=== PATIENT | female | born 1935 | race Caucasian/White ===

== ENCOUNTER 2017-11-16 11:55 | Observation (INO) | payer OTHER ==
--- NOTE | 2017-11-16 13:10 | PDOC ---
History of Present Illness - General History Source: Patient Exam Limitations: No Limitations - History of Present Illness Initial Comments: 11/16/17 15:43 The patient is a 82 year old female, with a significant PMH of breast cancer, HTN, depression and anxiety who presents to the emergency department from the [facility], complaining of right thigh pain which began approximately 3 days ago. Patient noticed erythema and constant pain to the right thigh 3 days ago. Patient mentioned she is part of the independent facility of the [facility], with no aid assistance and sits most of the day. The patient denies chest pain, shortness of breath, headache and dizziness. Denies fever, chills, nausea, vomit, diarrhea and constipation.Denies dysuria, frequency, urgency and hematuria. Allergies:Naproxen sodium Past surgical history: Appendectomy, Cholecystectomy, and rotator cuff surgery Social history: None reported PCP: Reny Luna <Yo Sahu - Last Filed: 11/16/17 16:23> <Melecio Zaidi - Last Filed: 11/16/17 16:55> - General Chief Complaint: Redness To Affected Area Stated Complaint: RT THIGH PAIN Time Seen by Provider: 11/16/17 12:44 Past History <Yo Sahu - Last Filed: 11/16/17 16:23> - Past Medical History Cancer: Yes (BREAST) COPD: No HTN: Yes Psychiatric Problems: Yes (DEPRESSION AND ANXIETY) - Surgical History Appendectomy: Yes Cholecystectomy: Yes Orthopedic Surgery: Yes (rotator cuff sx) - Suicide/Smoking/Psychosocial Hx Smoking History: Never smoked Number of Cigarettes Smoked Daily: 0 Cigars Per Day: 0 Hx Alcohol Use: No Drug/Substance Use Hx: No Substance Use Type: None Hx Substance Use Treatment: No <Melecio Zaidi - Last Filed: 11/16/17 16:55> - Past Medical History Allergies/Adverse Reactions: Allergies Allergy/AdvReac Type Severity Reaction Status Date / Time naproxen sodium [From Aleve] Allergy Verified 04/05/14 15:52 ASA Allergy Uncoded 11/16/17 12:23 Home Medications: Ambulatory Orders Venlafaxine HCl ER [Effexor Xr -] 75 mg PO DAILY 04/05/14 Acetaminophen [Mapap] 1,000 mg PO PRN PRN 11/16/17 Bupropion HCl [Wellbutrin Xl -] 150 mg PO DAILY 11/16/17 Ergocalciferol (Vitamin D2) [Vitamin D2] 50,000 unit PO WEEKLY 11/16/17 Review of Systems - Review of Systems Able to Perform ROS?: Yes Comments:: 11/16/17 15:43 CONSTITUTIONAL: No fever, no chills, no fatigue EYES: No visual changes ENT: No ear pain, no sore throat CARDIOVASCULAR: No chest pain, no palpitations RESPIRATORY: No cough, no SOB GI: No abdominal pain, no nausea, no vomiting, no constipation, no diarrhea GENITOURINARY: No dysuria, no frequency, no hematuria MUSKULOSKELETAL: No back pain, no joint pain, no myalgias SKIN: +Erythematous right thigh NEURO: No headache <Yo Sahu - Last Filed: 11/16/17 16:23> *Physical Exam - Vital Signs Last Vital Signs Temp Pulse Resp BP Pulse Ox 97.8 F 68 17 117/48 95 11/16/17 12:18 11/16/17 12:18 11/16/17 12:18 11/16/17 12:18 11/16/17 12:18 <Yo Sahu - Last Filed: 11/16/17 16:23> - Vital Signs Last Vital Signs Temp Pulse Resp BP Pulse Ox 97.8 F 68 17 117/48 95 11/16/17 12:18 11/16/17 12:18 11/16/17 12:18 11/16/17 12:18 11/16/17 12:18 - Physical Exam Comments: 11/16/17 16:04 EXAMINATION CONSTITUTIONAL:alert; well nourished; in no apparent distress HEAD: Normocephalic; atraumatic EYES: PERRL; EOM intact ENMT: External appears normal; normal oropharynx NECK: Supple; non-tender; no cervical lymphadenopathy CARD: Normal S1, S2; 3/6 sys murmurs, no rubs, or gallops RESP: Normal chest excursion with respiration; breath sounds clear and equal bilaterally; no wheezes, rhonchi, or rales ABD: Soft, non-distended; non-tender; no palpable organomegaly, no palpable hernias EXT: RLE: + torturous, tender, palpable superficial vein to inner aspect of the thigh wtih aprox 12cm area of well demarcated erythema distally c/w cellulitis; distal pulses intact SKIN: Warm, dry, no rash NEURO: No focal neurological deficiencies. <Melecio Zaidi - Last Filed: 11/16/17 16:55> ED Treatment Course - LABORATORY CBC & Chemistry Diagram: 11/16/17 11:30 11/16/17 11:30 - ADDITIONAL ORDERS Additional order review: Laboratory Results 11/16/17 11:30 Sodium 142 Potassium 4.6 Chloride 104 Carbon Dioxide 34 H Anion Gap 4 L BUN 21 H Creatinine 1.0 Creat Clearance w eGFR 53.08 Random Glucose 111 H Calcium 9.1 Total Bilirubin 0.2 AST 14 L ALT 15 Alkaline Phosphatase 63 Total Protein 6.4 Albumin 3.2 L 11/16/17 11:30 RBC 3.42 L MCV 95.3 MCHC 33.2 RDW 12.9 MPV 9.3 Neutrophils % 64.7 Lymphocytes % 18.8 Monocytes % 14.1 H Eosinophils % 2.2 Basophils % 0.2 <Yo Sahu - Last Filed: 11/16/17 16:23> - LABORATORY CBC & Chemistry Diagram: 11/16/17 11:30 11/16/17 11:30 <Melecio Zaidi - Last Filed: 11/16/17 16:55> Medical Decision Making - Medical Decision Making 11/16/17 16:[address] Luna called and discussed patients case with Dr. Zaidi. <Yo Sahu - Last Filed: 11/16/17 16:23> - Medical Decision Making 11/16/17 16:00 Patient adamantly denies that she is ALLERGIC to NSAIDs or aspirin 11/16/17 16:09 Patient is an 82-year-old female who presents to the ER with superficial thrombus phlebitis of the saphenous vein with related cellulitis. Will administer aspirin, warm compresses, and Ancef IV. We'll place and of for further care. <Melecio Zaidi - Last Filed: 11/16/17 16:55> *DC/Admit/Observation/Transfer - Attestations Scribe Attestion: 11/16/17 15:44 Documentation prepared by Yo Sahu, acting as medical cost consultant for Melecio Zaidi MD. <Yo Sahu - Last Filed: 11/16/17 16:23> - Discharge Dispostion Decision to Admit order: Yes <Melecio Zaidi - Last Filed: 11/16/17 16:55> Diagnosis at time of Disposition: Cellulitis Qualifiers: Site of cellulitis: extremity Site of cellulitis of extremity: lower extremity Laterality: right Qualified Code(s): L03.115 - Cellulitis of right lower limb Thrombophlebitis leg superficial Qualifiers: Laterality: right Qualified Code(s): I80.01 - Phlebitis and thrombophlebitis of superficial vessels of right lower extremity - Discharge Dispostion Condition at time of disposition: Fair - Referrals Referrals: Reny Luna MD [Primary Care Provider] -
[2017-11-16 13:47] LABS: BASO % 0.2 % (0-2.0); EOS % 2.2 % (0-4.5); HEMATOCRIT 32.5 % (32.4-45.2); HEMOGLOBIN 10.8 GM/dL (10.7-15.3); LYMPH % 18.8 % (8-40); MCH 31.6 pg (25.7-33.7); MCHC 33.2 g/dl (32.0-36.0); MEAN CELL VOLUME 95.3 fl (80-96); MEAN PLT VOLUME 9.3 fl (7.5-11.1); MONO % 14.1 % (3.8-10.2); NEUT % 64.7 % (42.8-82.8); PLATELET COUNT 165 K/MM3 (134-434); RBC 3.42 M/mm3 (3.60-5.2); RDW 12.9 % (11.6-15.6); WHITE BLOOD COUNT 4.6 K/mm3 (4.0-10.0)
[2017-11-16 14:13] LABS: ALBUMIN 3.2 g/dl (3.4-5.0); ANION GAP 4 (8-16); BLOOD UREA NITROGEN 21 mg/dL (7-18); CALCIUM 9.1 mg/dL (8.5-10.1); CHLORIDE 104 mmol/L (98-107); CO2 34 mmol/L (21-32); GLUCOSE,RANDOM 111 mg/dL (74-106); POTASSIUM 4.6 mmol/L (3.5-5.1); SGOT/AST 14 U/L (15-37); SGPT/ALT 15 U/L (12-78); SODIUM 142 mmol/L (136-145)
[2017-11-16 14:15] LABS: ALK PHOS 63 U/L (45-117); BILIRUBIN,TOTAL 0.2 mg/dL (0.2-1.0); TOT PROT 6.4 g/dl (6.4-8.2)
[2017-11-16 15:58] LABS: INR 1.02 (0.82-1.09); PROTHROMBIN TIME (PATIENT) 11.5 SEC (9.7-13.0)
[2017-11-16] MEDS ORDERED: ASPIRIN 325 MG TABLET PO ONE (15:59)
[2017-11-16] MEDS ORDERED: ceFAZolin 2 GRAM PREMIX BAG IVPB ONE (16:00)
[2017-11-16] MEDS ORDERED: CEFAZOLIN 2 GM/D5W 2 GM/50 ML ML IVPB ONE (16:30)
[2017-11-16] MEDS ORDERED: ASPIRIN 325 MG TABLET ONE (16:46)
[2017-11-16] MEDS ORDERED: ceFAZolin SODIUM 1 GM VIAL ONE (16:48)
[2017-11-16] MEDS ORDERED: AMPICILLIN NA/SULBACTAM NA 1.5 GM in SODIUM CHLORIDE 100 ML IVPB SCH (17:46)
--- NOTE | 2017-11-16 18:41 | HP ---
CHIEF COMPLAINT: Right Thigh pain PCP: Dr. Rouse HISTORY OF PRESENT ILLNESS: 82 y/o F with a PMHx of Breast cancer, HTN, Depression and anxiety presents from [address] [place] [address] with Rigth thigh pain X 3 days. Patient says she woke up and saw redness over her inner right thigh. There is a constant pain in the region, described as soreness, that worsens with palpation. She has never had an episode like this before. She does not recall any exacerbating factors. Denies any trauma to the region. Denies fevers, chills, chest pain, SOB, Nausea, vomiting, headache or dizziness. Denies any medication changes, recent travel, sick contacts or bug bites. Of note, patient lives alone at the [facility] without any roommates and ambulates with a rolling walker. Patient denies any allergy to Aspirin or Naproxen. ER course was notable for: (1) DUPLEX: There is no evidence of deep venous thromboses in the right lower extremity. Tortuous prominent veins without vascular flow in the right mid thigh , medially consistent with thrombophlebitis. (2) ASA 325mg, Ancef 2gm (3) Recent Travel: Denies PAST MEDICAL HISTORY: - Breast cancer - HTN - Depression - Anxiety PAST SURGICAL HISTORY: - Appendectomy - Cholecystectomy - Tonsils - Rotator cuff Social History: Smoking: Denies Alcohol: Denies Drugs: Denies Family History: Allergies naproxen sodium [From Aleve] Allergy (Verified 04/05/14 15:52) ASA Allergy (Uncoded 11/16/17 12:23) HOME MEDICATIONS: Home Medications Medication Instructions Recorded Venlafaxine HCl ER [Effexor Xr -] 75 mg PO DAILY 04/05/14 Acetaminophen [Mapap] 1,000 mg PO PRN PRN 11/16/17 Bupropion HCl [Wellbutrin Xl -] 150 mg PO DAILY 11/16/17 Ergocalciferol (Vitamin D2) 50,000 unit PO WEEKLY 11/16/17 [Vitamin D2] REVIEW OF SYSTEMS CONSTITUTIONAL: Absent: fever, chills, diaphoresis, generalized weakness, malaise, loss of appetite, weight change HEENT: Absent: rhinorrhea, nasal congestion, throat pain, throat swelling, difficulty swallowing, mouth swelling, ear pain, eye pain, visual changes CARDIOVASCULAR: Absent: chest pain, syncope, palpitations, irregular heart rate, lightheadedness , peripheral edema RESPIRATORY: Absent: cough, shortness of breath, dyspnea with exertion, orthopnea, wheezing, stridor, hemoptysis GASTROINTESTINAL: Absent: abdominal pain, abdominal distension, nausea, vomiting, diarrhea, constipation, melena, hematochezia GENITOURINARY: Absent: dysuria, frequency, urgency, hesitancy, hematuria, flank pain, genital pain MUSCULOSKELETAL: Absent: myalgia, arthralgia, joint swelling, back pain, neck pain SKIN: Absent: rash, itching, pallor HEMATOLOGIC/IMMUNOLOGIC: Absent: easy bleeding, easy bruising, lymphadenopathy, frequent infections ENDOCRINE: Absent: unexplained weight gain, unexplained weight loss, heat intolerance, cold intolerance NEUROLOGIC: Absent: headache, focal weakness or paresthesias, dizziness, unsteady gait, seizure, mental status changes, bladder or bowel incontinence PSYCHIATRIC: Absent: anxiety, depression, suicidal or homicidal ideation, hallucinations. PHYSICAL EXAMINATION Vital Signs - 24 hr 11/16/17 11/16/17 12:18 17:00 Temperature 97.8 F 98 F Pulse Rate 68 Pulse Rate [ 74 Left Radial] Respiratory 17 18 Rate Blood Pressure 117/48 Blood Pressure 142/92 [Right Arm] O2 Sat by Pulse 95 95 Oximetry (%) GENERAL: Awake, alert, and fully oriented, in no acute distress. LUNGS: Breath sounds equal, clear to auscultation bilaterally. No wheezes, no rales, no crackles. No accessory muscle use. HEART: Regular rate and rhythm, normal S1 and S2 without murmur, rub or gallop. ABDOMEN: Soft, nontender, not distended, normoactive bowel sounds, no guarding MUSCULOSKELETAL: Normal range of motion at hips, knees, ankles and elbows RIGHT LOWER EXTREMITY: Dry, erythematous, patch measuring 10cm over chronic varicose veins in the right medial thigh. Sore to palpation. Without warmth, bleeding or discharge. 2+ pulse, 1+ peripheral edema B/L Laboratory Results - last 24 hr 11/16/17 11/16/17 11/16/17 11:30 11:30 11:30 WBC 4.6 RBC 3.42 L Hgb 10.8 Hct 32.5 MCV 95.3 MCH 31.6 MCHC 33.2 RDW 12.9 Plt Count 165 D MPV 9.3 Absolute Neuts (auto) 3.0 Neutrophils % 64.7 Lymphocytes % 18.8 Monocytes % 14.1 H Eosinophils % 2.2 Basophils % 0.2 Nucleated RBC % 0 PT with INR 11.50 INR 1.02 Sodium 142 Potassium 4.6 Chloride 104 Carbon Dioxide 34 H Anion Gap 4 L BUN 21 H Creatinine 1.0 Creat Clearance w eGFR 53.08 Random Glucose 111 H Calcium 9.1 Total Bilirubin 0.2 AST 14 L ALT 15 Alkaline Phosphatase 63 Total Protein 6.4 Albumin 3.2 L Active Medications Enoxaparin Sodium (Lovenox -) 80 mg SQ BID [facility] ASSESSMENT/PLAN: 82 y/o F with a PMHx of Breast cancer, HTN, Depression and anxiety presents from [address] [place] [address] with Right thigh pain X 3 days will be placed under observation 1. Superficial Thrombophlebitis - Likely in the greater Saphenous vein - Cannot rule out cellulitis - Has high risk factors including hx of malignancy - US findings consistent with thrombophlebitis - Given ASA 325mg and one dose Cefazolin in ED - Start Lovenox 80mg SQ BID - Warm compresses - Will consider ABx if patient shows signs of cellulitis - Blood cultures pending 2. HTN - Controlled, Hold her home meds until medication reconciliation - Continue to monitor 3. FEN - PO Intake - Lytes WNL, will repleate as necessary - Cardiac Diet 4. PPx - DVT: Lovenox Visit type - Emergency Visit Emergency Visit: Yes Care time: The patient presented to the Emergency Department on the above date and was hospitalized for further evaluation of their emergent condition. - New Patient This patient is new to me today: Yes Date on this admission: 11/16/17 - Critical Care Critical Care patient: No Hospitalist Screening - Colonoscopy Questionnaire Colonoscopy Questionnaire: Colonoscopy Questionnaire - Patient: 50 - 75 years old and never had a screening colonoscopy: Unknown History of colon or rectal polyps, or CA: Unknown History of IBD, Crohn's disease or UC: Unknown History of abdominal radiation therapy as a child: Unknown - Relative: 1 with colon or rectal CA, or polyps at age 60 or younger: Unknown Colon or rectal CA diagnosed at age 45 or younger: Unknown Multiple relatives with colon or rectal CA: Unknown - Outcome: Screening Result: Negative Screen
--- NOTE | 2017-11-16 18:51 | PN ---
Teaching Attending Note Name of Resident: Leonila Farnsworth ATTENDING PHYSICIAN STATEMENT I saw and evaluated the patient. I reviewed the resident's note and discussed the case with the resident. I agree with the resident's findings and plan as documented. SUBJECTIVE:82yo F wtih PMH breast cancer, HTN and depression (PMH obtained from chart) presenting with R medial thigh pain and erythema x3days. says she noted it 3 days ago after waking yp and progressively worsened. states she is now unable to ambulate due to the pain. denies CP, SOB, fever, chills, cough, hemoptysis, N/V/C/D, denies any trauma to the leg, any lesion or pimple to the leg. never had previous episode. suffers from varicose veins but never had treatment for it. pt seems like a poor historian. states she never was diagnosed with any medical conditions and denies taking any medications or ever having been on medications OBJECTIVE: Last Vital Signs Temp Pulse Resp BP Pulse Ox 98 F 74 18 142/92 95 11/16/17 17:00 11/16/17 17:00 11/16/17 17:00 11/16/17 17:00 11/16/17 17:00 General NAD, A&O x3 CV S1 S2 + Lungs CTA B/L no wheezing/rlaes/rhonchi Abdomen soft NT/ND Extremities L medial thigh, tortuous nodularity of the venous cord from proximal thigh to medial thigh appears to be at saphenofemoral junction >8cm. area is tender. with surrounding but not circumferential erythema. no warmth no drainage, no B/L calf tenderness ASSESSMENT AND PLAN: 82yo F wtih PMH breast cancer, HTN and depression (PMH obtained from chart) presenting with R medial thigh pain and erythema x3days and found to have superficial thrombophlebitis 1. Superficial thrombophlebitis- doppler done in the ER confirming diagnosis. would treat with anticoagulation in this instance due to location and size of the area in setting of possible breast cancer. start full dose lovenox. cool compresses. MALINDA. allergy to NSAIDS,unknown reaction so will hold NSAIDS at this time. received cefazolin in the ER but would hold antibitoics as does not have any drainage and no fevers or leukocytosis. Bcx sent. 2. HTN- claims she does nto take medications. currently normotensive, would hold for now and confirm medication list and if currently on medication 3. depression- same as above 4. breast cancer- dx from the chart per ER doctor. unable to confirm at this time if was given in report will have to confirm if had breast cancer in the past 5. DVT ppx- full dose lovenox 6. PT eval. confirm hx and medications.
[2017-11-16 20:55] VITALS: BMI 27.4
[2017-11-16] MEDS: ENOXAPARIN NA (PORCINE) 80 MG/0.8 ML DISP.SYRIN SQ SCH (21:45)
[2017-11-17 07:58] LABS: BASO % 0.1 % (0-2.0); EOS % 2.8 % (0-4.5); LYMPH % 25.1 % (8-40); MCH 31.9 pg (25.7-33.7); MCHC 33.4 g/dl (32.0-36.0); MEAN CELL VOLUME 95.7 fl (80-96); MEAN PLT VOLUME 9.6 fl (7.5-11.1); MONO % 13.2 % (3.8-10.2); NEUT % 58.8 % (42.8-82.8); PLATELET COUNT 172 K/MM3 (134-434); RBC 3.45 M/mm3 (3.60-5.2); RDW 12.9 % (11.6-15.6); WHITE BLOOD COUNT 4.4 K/mm3 (4.0-10.0)
[2017-11-17 08:10] LABS: ALBUMIN 3.1 g/dl (3.4-5.0); ANION GAP 4 (8-16); BILIRUBIN,TOTAL 0.4 mg/dL (0.2-1.0); BLOOD UREA NITROGEN 20 mg/dL (7-18); CHLORIDE 106 mmol/L (98-107); CO2 34 mmol/L (21-32); CREATININE 0.9 mg/dL (0.55-1.02); GLUCOSE,RANDOM 90 mg/dL (74-106); POTASSIUM 4.5 mmol/L (3.5-5.1); SGOT/AST 15 U/L (15-37); SGPT/ALT 14 U/L (12-78); SODIUM 144 mmol/L (136-145); TOT PROT 6.4 g/dl (6.4-8.2)
[2017-11-17 08:11] LABS: ALK PHOS 62 U/L (45-117)
[2017-11-17 08:35] LABS: INR 1.04 (0.82-1.09); PROTHROMBIN TIME (PATIENT) 11.8 SEC (9.7-13.0)
[2017-11-17 08:36] LABS: ACTIVATED PTT 40.7 SECONDS (25.2-36.5)
[2017-11-17] MEDS: ENOXAPARIN NA (PORCINE) 80 MG/0.8 ML DISP.SYRIN SQ SCH ×2 (10:01→21:33)
--- NOTE | 2017-11-17 12:03 | EKG ---
Test Reason : Blood Pressure : / mmHG Vent. Rate : 066 BPM Atrial Rate : 066 BPM P-R Int : 196 ms QRS Dur : 090 ms QT Int : 406 ms P-R-T Axes : 053 037 084 degrees QTc Int : 425 ms SINUS RHYTHM WITH OCCASIONAL PREMATURE VENTRICULAR COMPLEXES OTHERWISE NORMAL ECG WHEN COMPARED WITH ECG OF 05-APR-2014 18:18, PREMATURE VENTRICULAR COMPLEXES ARE NOW PRESENT Confirmed by MARGARET FARRELL, PHIL ([id number]) on 11/17/2017 12:02:42 PM Referred By: Confirmed By:PHIL ROBLES MD
--- NOTE | 2017-11-17 12:49 | PN ---
Teaching Attending Note Name of Resident: Leonila Farnsworth ATTENDING PHYSICIAN STATEMENT I saw and evaluated the patient. I reviewed the resident's note and discussed the case with the resident. I agree with the resident's findings and plan as documented. SUBJECTIVE:states pain is better today. denies CP, SOB< fever, chills, N/V/C/D OBJECTIVE: Last Vital Signs Temp Pulse Resp BP Pulse Ox 98.4 F 60 18 130/68 98 11/17/17 05:53 11/17/17 05:53 11/17/17 05:53 11/17/17 05:53 11/16/17 20:59 General NAD, A&O x3 Extremities R medial thigh, tortuous nodularity of the venous cord from proximal thigh to medial thigh appears to be at saphenofemoral junction >8cm. area is tender. erythema looks improved. no warmth or drainage. ASSESSMENT AND PLAN: 82yo F wtih PMH breast cancer, HTN and depression (PMH obtained from chart) presenting with R medial thigh pain and erythema x3days and found to have superficial thrombophlebitis 1. Superficial thrombophlebitis-appears improved. will cont with full dose lovenox, cold compresses. does not recall having allergy to NSAIDS and what reaction she might have had. will wait prior to giving at this time. although allergy list says asa however she received yesterday without problem. will remove allergy from record. will cont current management. hold abx. f/u cx 2. HTN- claims she does not take medications. currently normotensive, would hold for now and confirm medication list and if currently on medication 3. depression- same as above 4. breast cancer- dx from the chart per ER doctor. unable to confirm at this time if was given in report will have to confirm if had breast cancer in the past 5. DVT ppx- full dose lovenox 6. PT eval. confirm hx and medications.
--- NOTE | 2017-11-17 18:27 | PN ---
Physical Exam: SUBJECTIVE: Patient seen and examined at bedside this morning. No new complaints. No overnight acute events as per nursing. Denies fevers, chills, chest pain, SOB, nausea, vomiting, diarrhea, constipation OBJECTIVE: Vital Signs Period Temp Pulse Resp BP Sys/Painting Pulse Ox Last 24 Hr 98.2 F-98.6 F 60-105 17-132 128-146/60-75 98-99 Extremities R medial thigh, tortuous nodularity of the venous cord from proximal thigh to medial thigh appears to be at saphenofemoral junction >8cm. area is tender. erythema looks improved. no warmth or drainage. GENERAL: Awake, alert, and fully oriented, in no acute distress. LUNGS: Breath sounds equal, clear to auscultation bilaterally HEART: Regular rate and rhythm, normal S1 and S2 without murmur, rub or gallop. ABDOMEN: Soft, nontender, not distended, normoactive bowel sounds RIGHT LOWER EXTREMITY: Dry, patch measuring 10cm over chronic varicose veins in the right medial thigh. Erythema improving, tender to palpation. Without warmth , bleeding or discharge. 2+ pulse, 1+ peripheral edema B/L Laboratory Results - last 24 hr 11/17/17 11/17/17 11/17/17 07:20 07:20 08:00 WBC 4.4 RBC 3.45 L Hgb 11.0 Hct 33.0 MCV 95.7 MCH 31.9 MCHC 33.4 RDW 12.9 Plt Count 172 MPV 9.6 Absolute Neuts (auto) 2.6 Neutrophils % 58.8 Lymphocytes % 25.1 D Monocytes % 13.2 H Eosinophils % 2.8 Basophils % 0.1 Nucleated RBC % 0 PT with INR 11.80 INR 1.04 PTT (Actin FS) 40.7 H Sodium 144 Potassium 4.5 Chloride 106 Carbon Dioxide 34 H Anion Gap 4 L BUN 20 H Creatinine 0.9 Creat Clearance w eGFR 59.94 Random Glucose 90 Calcium 9.0 Total Bilirubin 0.4 AST 15 ALT 14 Alkaline Phosphatase 62 Total Protein 6.4 Albumin 3.1 L Microbiology 11/16/17 11:30 Blood - Peripheral Venous Blood Culture - Preliminary NO GROWTH OBTAINED AFTER 24 HOURS, INCUBATION TO CONTINUE FOR 4 DAYS. 11/16/17 11:30 Blood - Peripheral Venous Blood Culture - Preliminary NO GROWTH OBTAINED AFTER 24 HOURS, INCUBATION TO CONTINUE FOR 4 DAYS. Active Medications Enoxaparin Sodium (Lovenox -) 80 mg SQ BID [facility] Last Admin: 11/17/17 10:01 Dose: 80 mg ASSESSMENT/PLAN: 82 y/o F with a PMHx of Breast cancer, HTN, Depression and anxiety presents from [address] [place] [address] with Right thigh pain X 3 days will be placed under observation 1. Superficial Thrombophlebitis - Erythema has improved and decreased in size - Cannot rule out cellulitis - Has high risk factors including hx of malignancy - US findings consistent with thrombophlebitis - ED Course: Given ASA 325mg and one dose Cefazolin - Continue Lovenox 80mg SQ BID - Warm compresses - Will consider ABx if patient shows signs of cellulitis - Blood cultures pending 2. HTN - Controlled, Hold her home meds until medication reconciliation - Unable to reach daughter, patient unclear of which pharmacy she most recently used - Continue to monitor 3. FEN - PO Intake - Lytes WNL, will repleate as necessary - Cardiac Diet 4. PPx - DVT: Lovenox Visit type - Emergency Visit Emergency Visit: Yes ED Registration Date: 11/16/17 Care time: The patient presented to the Emergency Department on the above date and was hospitalized for further evaluation of their emergent condition. - New Patient This patient is new to me today: No - Critical Care Critical Care patient: No
[2017-11-18 08:32] LABS: BASO % 0.2 % (0-2.0); EOS % 2.5 % (0-4.5); HEMATOCRIT 35.2 % (32.4-45.2); HEMOGLOBIN 11.9 GM/dL (10.7-15.3); MCH 32.1 pg (25.7-33.7); MCHC 33.6 g/dl (32.0-36.0); MEAN CELL VOLUME 95.4 fl (80-96); MEAN PLT VOLUME 9.5 fl (7.5-11.1); MONO % 13.1 % (3.8-10.2); NEUT % 60.2 % (42.8-82.8); PLATELET COUNT 181 K/MM3 (134-434); RBC 3.69 M/mm3 (3.60-5.2); RDW 13.2 % (11.6-15.6); WHITE BLOOD COUNT 5.5 K/mm3 (4.0-10.0)
[2017-11-18 08:53] LABS: ALBUMIN 3.1 g/dl (3.4-5.0); ALK PHOS 65 U/L (45-117); ANION GAP 6 (8-16); BILIRUBIN,TOTAL 0.4 mg/dL (0.2-1.0); BLOOD UREA NITROGEN 16 mg/dL (7-18); CALCIUM 8.9 mg/dL (8.5-10.1); CHLORIDE 105 mmol/L (98-107); CO2 33 mmol/L (21-32); CREATININE 0.8 mg/dL (0.55-1.02); GLUCOSE,RANDOM 82 mg/dL (74-106); MAGNESIUM 2.2 mg/dL (1.8-2.4); PHOSPHOROUS 3.7 mg/dL (2.5-4.9); POTASSIUM 4.2 mmol/L (3.5-5.1); SGOT/AST 17 U/L (15-37); SGPT/ALT 13 U/L (12-78); SODIUM 144 mmol/L (136-145); TOT PROT 6.5 g/dl (6.4-8.2)
[2017-11-18] MEDS: ENOXAPARIN NA (PORCINE) 80 MG/0.8 ML DISP.SYRIN SQ SCH (09:21)
[2017-11-18 09:26] VITALS: BP 118/47; PULSE 68; TEMP 98.1
--- NOTE | 2017-11-18 11:34 | DS ---
Physical Exam: SUBJECTIVE: Patient seen and examined while lying comfortably in bed. No new complaints. No acute overnight event s as per nursing. Denies fevers, chills, chest pain, SOB, nausea, vomiting, diarrhea, constipation. OBJECTIVE: Vital Signs Period Temp Pulse Resp BP Sys/Painting Pulse Ox Last 24 Hr 98.1 F-98.8 F 64-74 18-20 113-157/47-96 98-98 PHYSICAL EXAM GENERAL: Awake, alert, and oriented, however patient is forgetful and confused, in no acute distress. LUNGS: Breath sounds equal, CTA b/l HEART: RRR, S1 S2, No murmur, rub or gallop ABDOMEN: Soft, nontender, not distended, normoactive bowel sounds RIGHT LOWER EXTREMITY: Erythematha continues to improve, less tender to palpation, warm, without bleeding or discharge. 2+ pulse, 1+ peripheral edema B/ L LABS Laboratory Results - last 24 hr 11/18/17 11/18/17 07:00 07:00 WBC 5.5 RBC 3.69 Hgb 11.9 Hct 35.2 MCV 95.4 MCH 32.1 MCHC 33.6 RDW 13.2 Plt Count 181 MPV 9.5 Absolute Neuts (auto) 3.3 Neutrophils % 60.2 Lymphocytes % 24.0 Monocytes % 13.1 H Eosinophils % 2.5 Basophils % 0.2 Nucleated RBC % 0 Sodium 144 Potassium 4.2 Chloride 105 Carbon Dioxide 33 H Anion Gap 6 L BUN 16 Creatinine 0.8 Creat Clearance w eGFR > 60 Random Glucose 82 Calcium 8.9 Phosphorus 3.7 Magnesium 2.2 Total Bilirubin 0.4 AST 17 ALT 13 Alkaline Phosphatase 65 Total Protein 6.5 Albumin 3.1 L Microbiology 11/16/17 11:30 Blood - Peripheral Venous Blood Culture - Preliminary NO GROWTH OBTAINED AFTER 24 HOURS, INCUBATION TO CONTINUE FOR 4 DAYS. 11/16/17 11:30 Blood - Peripheral Venous Blood Culture - Preliminary NO GROWTH OBTAINED AFTER 24 HOURS, INCUBATION TO CONTINUE FOR 4 DAYS. IMAGING Ultrasound: There is no evidence of deep venous thromboses in the right lower extremity. Tortuous prominent veins without vascular flow in the right mid thigh , medially consistent with thrombophlebitis CXR: Since 04/08/2014, again there is a large heart with unfolded aorta, possible hiatal hernia and increased density in the retrocardiac area. There are left chest wall / breast clips. Is a right lung is clear. Correlation recommended. HOSPITAL COURSE: Date of Admission:11/16/17 Date of Discharge: 11/18/17 Prehospital course 82 y/o F with a PMHx of Breast cancer, HTN, Depression and anxiety presents from [address] [place] [address] with Rigth thigh pain X 3 days. Patient says she woke up and saw redness over her inner right thigh. There is a constant pain in the region, described as soreness, that worsens with palpation. She has never had an episode like this before. She does not recall any exacerbating factors. Denies any trauma to the region. Denies fevers, chills, chest pain, SOB , Nausea, vomiting, headache or dizziness. Denies any medication changes, recent travel, sick contacts or bug bites. Of note, patient lives alone at the [facility] without any roommates and ambulates with a rolling walker. Patient denies any allergy to Aspirin or Naproxen. ER course was notable for ASA 325mg, Ancef 2gm, and DUPLEX that showed there is no evidence of deep venous thromboses in the right lower extremity. Tortuous prominent veins without vascular flow in the right mid thigh, medially consistent with thrombophlebitis. Hospital course Patient was admittied for Superficial Thrombophlebitis. She was started on Lovenox. Blood cultures were sent and the preliminary results are negative. Patient will be discharged back to [address] [place] [address] on Xarelto. Minutes to complete discharge: 50 Discharge Summary Reason For Visit: CELLULITIS; SUPERFICIAL THROMBOPHLEBITIS Current Active Problems Cellulitis (Acute) Thrombophlebitis leg superficial (Acute) Condition: Improved - Instructions Diet, Activity, Other Instructions: Your are returning to [facility]. Please restart your home medications. You are being discharged on a blood thinner (Xarelto). PLease note that you will be more prone to bleeding and small cuts can take a long time to stop bleeding. Do not drink alcohol while on this medication. if you have bleeding or brusing monitor this closely that it does not get worse. It is very important that you take this medication as prescribed to you. It is very important that you do not miss doses. You will be on this medication for 45 days. You should follow up with a pigment mixer to do studies to determine if you should continue this medication longer. Please call 911 or return to the ER if you experience any excessive bleeding, bloody stools, blood in your cough or vomit, stroke symptoms (including Facial drop, excessive weakness, slurred speech, asymetrical arm strength) chest pain, shortness of breath, or fevers. return to the hospital for prolonged or excessive bleeding. Referrals: Reny Luna MD [Primary Care Provider] - Den Paz MD [Staff Physician] - Disposition: HOME - Home Medications Comprehensive Discharge Medication List: Ambulatory Orders Venlafaxine HCl ER [Effexor Xr -] 75 mg PO DAILY 04/05/14 Acetaminophen [Mapap] 1,000 mg PO PRN PRN 11/16/17 Bupropion HCl [Wellbutrin Xl -] 150 mg PO DAILY 11/16/17 This patient is new to me today: No Emergency Visit: Yes ED Registration Date: 11/16/17 Care time: The patient presented to the Emergency Department on the above date and was hospitalized for further evaluation of their emergent condition. Critical Care patient: No - Discharge Referral Referred to [facility] Med P.C.: No
--- NOTE | 2017-11-18 12:14 | PN ---
Teaching Attending Note Name of Resident: Leonila Farnsworth ATTENDING PHYSICIAN STATEMENT I saw and evaluated the patient. I reviewed the resident's note and discussed the case with the resident. I agree with the resident's findings and plan as documented. SUBJECTIVE:states pain has resolved. denies Cp, SOB, fever, chills, N/v/c/D OBJECTIVE: Last Vital Signs Temp Pulse Resp BP Pulse Ox 98.1 F 68 18 118/47 98 11/18/17 09:25 11/18/17 09:25 11/18/17 09:25 11/18/17 09:25 11/18/17 09:00 General NAD, A&O x3 Extremities R medial thigh, tortuous nodularity of the venous cord from proximal thigh to medial thigh appears to be at saphenofemoral junction >8cm. less tender. erythema mostly resolved. ASSESSMENT AND PLAN: 82yo F [facility] PMH breast cancer, HTN and depression (PMH obtained from chart) presenting with R medial thigh pain and erythema x3days and found to have superficial thrombophlebitis 1. Superficial thrombophlebitis-appears improved. on full dose lovenox. believe patient would not be able to self-inject at home and likely be non compliant. as per uptodate also recommend Xarelto 10mg daily. will cont for 45days. will need to f/u [facility] PMD and hematology for hypercoagability workup. Bcx negative 2. HTN- claims she does not take medications. currently normotensive, would hold for now and confirm medication list and if currently on medication 3. depression- same as above 4. breast cancer-unable to reach family and no one answering from PMD office to confirm reports. 5. DVT ppx- xarelto 6. ambulated 75ft with PT. d/c to [facility] today
== END 2017-11-18 16:10 | disposition home or self-care (01) ==
LOC: JER 11:55 → JERBED 16:55 → J6S 20:39
PROVIDERS: ADMIT Internal Medicine; ATTEND Internal Medicine
PROC: 3E03329 Introduction of Other Anti-infective into Peripheral Vein, Percutaneous Approach (ICD-10-PCS; principal; 2017-11-16)
PROC: 3E013GC Introduction of Other Therapeutic Substance into Subcutaneous Tissue, Percutaneous Approach (ICD-10-PCS; 2017-11-16)
DX: L03.115 Cellulitis of right lower limb (principal); I80.01 Phlebitis and thrombophlebitis of superficial vessels of right lower extremity; I10 Essential (primary) hypertension; F41.9 Anxiety disorder, unspecified; F32.9 Major depressive disorder, single episode, unspecified; Z85.3 Personal history of malignant neoplasm of breast; Z88.8 Allergy status to other drugs, medicaments and biological substances
CPT/HCPCS: 36415; 71045-TC-FY; 80053; 83735; 84100; 85025; 85610; 85730; 87040; 93005; 93010; 93971-TC; 96365; 96372; 97116-GP; 97161-GP; 99285-25; G0378

== ENCOUNTER 2018-05-03 09:01 | Observation (INO) | payer OTHER ==
[2018-05-03 09:15] VITALS: BMI 27.4
--- NOTE | 2018-05-03 09:50 | PDOC ---
History of Present Illness - General Chief Complaint: Pain, Acute Stated Complaint: LEG PAIN Time Seen by Provider: 05/03/18 09:05 History Source: Patient, EMS, Old Records Exam Limitations: No Limitations - History of Present Illness Initial Comments: HPI: 83 y/o female BIBEMS to [facility] ER from [facility]. Pt was discharged from this department after being evaluated for multiple falls. Her workup was unremarkable and she was transferred back to [facility]. On arrival, the pt was unable to bare weight on her left leg and unable to walk with her rolling walker. Receiving nurse refused to accept the pt citing a change in baseline ambulatory ability. On return to the department, the pt denies pain but says she cannot walk because her leg feels weak. Medical Hx: - Atrial Fib (on Xarelto) - Breast CA - HTN - MDD Past History - Past Medical History Allergies/Adverse Reactions: Allergies Allergy/AdvReac Type Severity Reaction Status Date / Time naproxen sodium [From Aleve] Allergy Verified 05/03/18 09:15 Home Medications: Ambulatory Orders Venlafaxine HCl ER [Effexor Xr -] 75 mg PO DAILY 04/05/14 Acetaminophen [Mapap] 1,000 mg PO Q8H PRN 11/16/17 Bupropion HCl [Wellbutrin Xl -] 150 mg PO DAILY 11/16/17 Rivaroxaban [Xarelto -] 10 mg PO DAILY #45 tablet 11/18/17 Cephalexin Monohydrate [Keflex -] 250 mg PO Q6H #28 capsule 05/03/18 Cholecalciferol (Vitamin D3) [Vitamin D3] 1,000 unit PO DAILY 05/03/18 Multivitamin/Iron/Folic Acid [Daily Vit Formula + Iron Tab] 1 each PO DAILY Cancer: Yes (BREAST) COPD: No HTN: Yes Psychiatric Problems: Yes (DEPRESSION AND ANXIETY) Other medical history: walks with walker. - Surgical History Appendectomy: Yes Cholecystectomy: Yes Orthopedic Surgery: Yes (rotator cuff sx) - Suicide/Smoking/Psychosocial Hx Smoking History: Never smoked Have you smoked in the past 12 months: No Number of Cigarettes Smoked Daily: 0 Cigars Per Day: 0 Information on smoking cessation initiated: No Hx Alcohol Use: No Drug/Substance Use Hx: No Substance Use Type: None Hx Substance Use Treatment: No Review of Systems - Review of Systems Able to Perform ROS?: Yes Comments:: In addition to that documented in the HPI above, the additional ROS was obtained : Constitutional: Denies fevers or chills Eyes: Denies vision changes ENMT: Denies sore throat CV: Denies chest pain Resp: Denies SOB GI: Denies vomiting or diarrhea : Denies painful urination MSK: Per HPI Skin: Denies new rashes Neuro: Denies new numbness or tingling or weakness Endocrine: Denies polyuria Heme: Denies bleeding or bruising *Physical Exam - Vital Signs Last Vital Signs Temp Pulse Resp BP Pulse Ox 97.5 F L 69 16 146/61 100 05/03/18 09:01 05/03/18 09:01 05/03/18 09:01 05/03/18 09:01 05/03/18 09:01 - Physical Exam Comments: Constitutional: Well-developed, well-nourished elderly female in no acute distress or obvious discomfort. Found semi-fowlers in hospital bed. Alert and oriented x4. Answered all questions appropriately and completely. Speech was non -labored, non-pressured. Head: Normocephalic. No obvious external signs of trauma. Eyes: Pupils 3mm and PERRL bilaterally. Sclerae white. EARS: Hearing grossly intact. NOSE: No nasal discharge. Neck: Supple, trachea is midline. No midline c-spine tenderness. Cardiovascular: Regular rate and regular rhythm. No murmur, rubs, clicks, or gallops. Peripheral pulses: Radial pulses full. Respiratory: Breathing unlabored. Equal chest rise and fall. Clear to auscultation bilaterally. No stridor, no wheezing, no rhonchi. Gastrointestinal: abdomen is soft, non-tender, non-distended. Neuro: Alert and oriented. Moving all four extremities spontaneously. Intact sensation to all four extremities. Lower extremity: proximal and distal strength 5/5. Plantar flexion and dorsiflexion 5/5. No lower extremity drift on R or L side. Unable to assess gait. MSK: Active and passive ROM of left hip, knee, and ankle unremarkable. No tenderness to palpation. Pt able to stand with assistance but would not bare weight on left leg. 5/5 pedal pulses bilaterally. Skin: Warm, dry, and intact. No bruising, rashes, or other lesions. Psych: Affect: appropriate. Mood: normal. Moderate Sedation - Procedure Monitoring Vital Signs: Procedure Monitoring Vital Signs Temperature 97.5 F L 05/03/18 09:01 Pulse Rate 69 05/03/18 09:01 Respiratory Rate 16 05/03/18 09:01 Blood Pressure 146/61 05/03/18 09:01 O2 Sat by Pulse Oximetry (%) 100 05/03/18 09:01 ED Treatment Course - RADIOLOGY Radiology Studies Ordered: Category Date Time Status ARTHROGRAM HIP CT* [CT] Stat CT Scan 05/03/18 09:26 Ordered Medical Decision Making - Medical Decision Making *Reviewed vital signs, nursing notes, and prior visit documentation (if available). 83 y/o female returning to the department for change ambulatory status per [facility]. Pt refuses versus unable to bare weight on left leg, but denies pain or paresthesia. Will obtain CT of hip and pelvis to evaluate for occult fracture. Pt declined pain medication. CT unremarkable for acute fracture or dislocation. Low suspicion for occult injury. Pt again unable versus refusing to place weight on left leg. Pts son called and reported that [facility] will not accept to the pt back regardless of the results of the workup. Will admit pt for failure to ambulate for PT evaluation and placement. 15:58 Telephone consultation with [employer] covering for Dr. Luna. Verbally appraised of the pts HPI, ED course, and current plan of management. Agrees to admit pt on observation status for failure to ambulate. *DC/Admit/Observation/Transfer Diagnosis at time of Disposition: Difficulty walking - Discharge Dispostion Condition at time of disposition: Stable Decision to Admit order: Yes - Referrals - Patient Instructions - Post Discharge Activity
--- NOTE | 2018-05-03 13:06 | PDOC ---
Attending Attestation - Medical Decision Making 05/03/18 13:37 Documentation prepared by Aliza Hunter, acting as anesthesiology medical doctor for Ang Jama MD "EXAM#: TYPE/EXAM: RESULT: [id number] CT/LOWER EXTREMITY CT W/O CONTR [id number] CT/PELVIS CT WITHOUT CONTRAST History provided: Left hip pain. Sequential axial images were obtained through the pelvis and hips. Coronal and sagittal extracted images were also performed. There is no evidence of fracture, hip dislocation or acute bone or joint abnormalities. There are mild degenerative arthritic changes noted about both hips with the joint spaces well-maintained. No soft tissue masses or fluid collections are identified. A moderate amount of retained fecal material is noted throughout the colon and rectum. IMPRESSION: Mild degenerative arthritis of both hips with no fracture, dislocation or acute bone or joint abnormalities. Please see above discussion. Reported By: Taran Enrique MD 05/03/18 104 EXAM#: TYPE/EXAM: RESULT: [id number] CT/LOWER EXTREMITY CT W/O CONTR [id number] CT/PELVIS CT WITHOUT CONTRAST History provided: Left hip pain. Sequential axial images were obtained through the pelvis and hips. Coronal and sagittal extracted images were also performed. There is no evidence of fracture, hip dislocation or acute bone or joint abnormalities. There are mild degenerative arthritic changes noted about both hips with the joint spaces well-maintained. No soft tissue masses or fluid collections are identified. A moderate amount of retained fecal material is noted throughout the colon and rectum. IMPRESSION: Mild degenerative arthritis of both hips with no fracture, dislocation or acute bone or joint abnormalities. Please see above discussion. Reported By: Taran Enrique MD 05/03/18 104 " <Aliza Hunter - Last Filed: 05/03/18 13:37> - Resident Resident Name: Howard Whalen - ED Attending Attestation I have performed the following: I have examined & evaluated the patient, The case was reviewed & discussed with the resident, I agree w/resident's findings & plan, Exceptions are as noted - HPI HPI: 05/03/18 13:04 The patient is a 83 year old female, with a significant medical history of breast cancer, HTN, depression and anxiety who presents to the emergency department from the [facility] for evaluation of left leg pain and difficulty ambulating with her rolling walker s/p fall. Pt was seen here this morning for evaluation of the same fall. Had CT head that was negative. However, upon discharge back to [place], pt was found to have difficulty bearing weight on her L leg and was sent back to ED for further evaluation. The patient denies fever, chills, nausea, vomit, diarrhea and constipation.Denies dysuria, frequency, urgency and hematuria. Allergies: Naproxen Past surgical history: Appendectomy, Cholecystectomy, and rotator cuff surgery Social history: None reported PCP: Reny Luna - Physicial Exam PE: 05/03/18 13:06 "GENERAL: Awake, alert, and fully oriented, in no acute distress. HEAD: No signs of trauma EYES: PERRLA, EOMI, sclera anicteric, conjunctiva clear ENT: Auricles normal inspection, hearing grossly normal, nares patent, oropharynx clear without exudates. Moist mucosa NECK: Nontender, no stepoffs, Normal ROM, supple, no lymphadenopathy, JVD, or masses LUNGS: Breath sounds equal, clear to auscultation bilaterally. No wheezes, and no crackles HEART: Regular rate and rhythm, normal S1 and S2, no murmurs, rubs or gallops ABDOMEN: Soft, nontender, normoactive bowel sounds. No guarding, no rebound. No masses EXTREMITIES: Normal range of motion, no edema. No clubbing or cyanosis. No cords, erythema, or tenderness NEUROLOGICAL: Cranial nerves II through XII intact. 5/5 strength and sensation in all extremities, Normal speech, normal gait, normal cerebellar function SKIN: Warm, Dry, normal turgor, no rashes or lesions noted. - Medical Decision Making 05/03/18 13:06 83 F with L hip pain s/p fall. No external signs of trauma. - CT pelvis + LLE 05/03/18 15:40 CTs negative for fx Pt reassessed - still unable to ambulate 2/2 pain. Spoke with [facility], who refuses to accept pt back if she cannot ambulate <Ang Jama - Last Filed: 05/03/18 15:40>
[2018-05-04] MEDS ORDERED: ACETAMINOPHEN 500 MG TABLET (FP) PO PRN (07:26)
--- NOTE | 2018-05-04 07:34 | HP ---
Admitting History and Physical - Admission History of Present Illness: 83 y/o female BIBEMS to [facility] ER from [facility]. Pt was discharged from this department after being evaluated for multiple falls. Her workup was unremarkable and she was transferred back to [facility]. On arrival, the pt was unable to bare weight on her left leg and unable to walk with her rolling walker. Receiving nurse refused to accept the pt citing a change in baseline ambulatory ability. On return to the department, the pt denies pain but says she cannot walk because her leg feels weak. Medical Hx: - Atrial Fib (on Xarelto) - Breast CA - HTN - MDD History Source: Medical Record Limitations to Obtaining History: Dementia, Poor Historian - Past Medical History POULTRY KILLER: Yes: Dementia Cardiovascular: Yes: AFIB, HTN Psych: Yes: Anxiety, Depression - Past Surgical History Past Surgical History: Yes: Appendectomy, Cholecystectomy - Smoking History Smoking history: Never smoked Have you smoked in the past 12 months: No Aproximately how many cigarettes per day: 0 - Alcohol/Substance Use Hx Alcohol Use: No History of Substance Use: reports: None - Social History Usual Living Arrangement: Yes: Assisted Living ADL: Support Services History of Recent Travel: No Home Medications - Allergies Allergies/Adverse Reactions: Allergies Allergy/AdvReac Type Severity Reaction Status Date / Time naproxen sodium [From Aleve] Allergy Verified 05/03/18 09:15 - Home Medications Home Medications: Ambulatory Orders Venlafaxine HCl ER [Effexor Xr -] 75 mg PO DAILY 04/05/14 Acetaminophen [Mapap] 1,000 mg PO Q8H PRN 11/16/17 Bupropion HCl [Wellbutrin Xl -] 150 mg PO DAILY 11/16/17 Rivaroxaban [Xarelto -] 10 mg PO DAILY #45 tablet 11/18/17 Cephalexin Monohydrate [Keflex -] 250 mg PO Q6H #28 capsule 05/03/18 Cholecalciferol (Vitamin D3) [Vitamin D3] 1,000 unit PO DAILY 05/03/18 Multivitamin/Iron/Folic Acid [Daily Vit Formula + Iron Tab] 1 each PO DAILY Review of Systems - Review of Systems Constitutional: reports: No Symptoms. denies: Chills, Fever, Lethargy, Malaise Eyes: reports: No Symptoms HENT: reports: No Symptoms Neck: reports: No Symptoms. denies: Other Cardiovascular: denies: Chest Pain, Palpitations, Shortness of Breath Respiratory: reports: No Symptoms Gastrointestinal: reports: No Symptoms. denies: Abdominal Pain, Vomiting Blood Genitourinary: reports: No Symptoms Breasts: reports: No Symptoms Reported Musculoskeletal: reports: No Symptoms Integumentary: reports: No Symptoms Neurological: reports: Confusion, Pre-Existing Deficit, Unsteady Gait Endocrine: reports: No Symptoms Psychiatric: reports: Altered Sleep Pattern, Anxiety Physical Examination Vital Signs: Vital Signs Temperature 98.8 F 05/04/18 02:00 Pulse Rate 72 05/04/18 02:00 Respiratory Rate 20 05/04/18 02:00 Blood Pressure 146/81 05/04/18 02:00 O2 Sat by Pulse Oximetry (%) 98 05/03/18 21:00 Constitutional: Yes: Well Nourished, No Distress. No: Anxious, Mild Distress Eyes: Yes: Conjunctiva Clear HENT: Yes: Atraumatic, Normocephalic Neck: Yes: Supple, Trachea Midline Cardiovascular: Yes: Pulse Irregular Respiratory: Yes: CTA Bilaterally Gastrointestinal: Yes: Normal Bowel Sounds ...Rectal Exam: Yes: Deferred Peripheral Pulses WNL: Yes Integumentary: Yes: WNL Neurological: Yes: Alert, Unsteady Gait Psychiatric: Yes: Alert Problem List - Problems (1) DJD (degenerative joint disease) of knee Code(s): M17.10 - UNILATERAL PRIMARY OSTEOARTHRITIS, UNSPECIFIED KNEE (2) Difficulty walking Code(s): R26.2 - DIFFICULTY IN WALKING, NOT ELSEWHERE CLASSIFIED (3) Dementia Code(s): F03.90 - UNSPECIFIED DEMENTIA WITHOUT BEHAVIORAL DISTURBANCE (4) Fall Code(s): W19.XXXA - UNSPECIFIED FALL, INITIAL ENCOUNTER (5) Recurrent falls Code(s): R29.6 - REPEATED FALLS (6) Unsteady gait Code(s): R26.81 - UNSTEADINESS ON FEET
[2018-05-04] MEDS ORDERED: PT OWN MED DRAWER 7, Y5N ONE ×2 (08:51→10:32)
[2018-05-04] MEDS ORDERED: RIVAROXABAN 10 MG TABLET PO SCH (10:00)
[2018-05-04] MEDS ORDERED: [UNRECOGNIZED DRUG - OTHER] PO SCH (10:00)
[2018-05-04] MEDS ORDERED: FOLIC ACID PO SCH (10:00)
[2018-05-04] MEDS ORDERED: VENLAFAXINE HCL 75 MG E.R. CAPSULES (FP) PO SCH (10:00)
[2018-05-04] MEDS ORDERED: CHOLECALCIFEROL (VITAMIN D3) 1,000 UNIT TABLET (FP) PO SCH (10:00)
[2018-05-04] MEDS ORDERED: MULTIVITAMIN PO SCH (10:00)
[2018-05-04] MEDS ORDERED: IRON PO SCH (10:00)
--- NOTE | 2018-05-04 11:02 | DS ---
Physical Examination Vital Signs: Vital Signs Temperature 98.8 F 05/04/18 02:00 Pulse Rate 72 05/04/18 02:00 Respiratory Rate 20 05/04/18 02:00 Blood Pressure 146/81 05/04/18 02:00 O2 Sat by Pulse Oximetry (%) 98 05/03/18 21:00 Constitutional: Yes: Well Nourished Eyes: Yes: Conjunctiva Clear HENT: Yes: Atraumatic, Normocephalic Neck: Yes: Supple, Trachea Midline Cardiovascular: Yes: Regular Rate and Rhythm Respiratory: Yes: Regular, CTA Bilaterally Gastrointestinal: Yes: Normal Bowel Sounds, Soft ...Rectal Exam: Yes: Deferred Renal/: Yes: WNL Discharge Summary Reason For Visit: DIFFICULTY WALKING Current Active Problems DJD (degenerative joint disease) of knee (Acute) Difficulty walking (Acute) Hospital Course: Came to ER s/p fall. [facility] to [facility] then sent back to ER again. CT scan of pelvis and lower extremity neg for fx. PT eval done. Left LE muscle weakness noted. Plan to return to [facility] for PT/OT. Condition: Stable - Instructions Disposition: HOME - Home Medications Comprehensive Discharge Medication List: Ambulatory Orders Venlafaxine HCl ER [Effexor Xr -] 75 mg PO DAILY 04/05/14 Acetaminophen [Mapap] 1,000 mg PO Q8H PRN 11/16/17 Bupropion HCl [Wellbutrin Xl -] 150 mg PO DAILY 11/16/17 Rivaroxaban [Xarelto -] 10 mg PO DAILY #45 tablet 11/18/17 Cephalexin Monohydrate [Keflex -] 250 mg PO Q6H #28 capsule 05/03/18 Cholecalciferol (Vitamin D3) [Vitamin D3] 1,000 unit PO DAILY 05/03/18 Multivitamin/Iron/Folic Acid [Daily Vit Formula + Iron Tab] 1 each PO DAILY
[2018-05-04 14:24] VITALS: BP 153/62; PULSE 76; TEMP 97.8
== END 2018-05-04 16:32 | disposition home or self-care (01) ==
LOC: JER 09:01 → JERBED 15:57 → J7W 20:05
PROVIDERS: ADMIT Family Medicine; ATTEND Family Medicine
DX: R26.2 Difficulty in walking, not elsewhere classified (principal); M16.0 Bilateral primary osteoarthritis of hip; M17.10 Unilateral primary osteoarthritis, unspecified knee; F03.90 Unspecified dementia, unspecified severity, without behavioral disturbance, psychotic disturbance, mood disturbance, and anxiety; R29.6 Repeated falls; R26.81 Unsteadiness on feet; I10 Essential (primary) hypertension; I48.91 Unspecified atrial fibrillation; F33.9 Major depressive disorder, recurrent, unspecified; Z99.89 Dependence on other enabling machines and devices; Z85.3 Personal history of malignant neoplasm of breast; Z79.01 Long term (current) use of anticoagulants
CPT/HCPCS: 36415; 70450-TC; 72192-TC; 73700-TC-RT; 80053; 81003; 81015; 82550; 82607; 84252; 84484; 85025; 87070; 87086; 87880; 93005; 93010; 97116-GP; 97162-GP; 99282-25; 99285-25; G0378

== ENCOUNTER 2018-05-05 04:23 | Emergency (ER) | payer OTHER ==
[2018-05-05 04:30] VITALS: BP 137/53; PULSE 70; TEMP 97; BMI 24.2
--- NOTE | 2018-05-05 04:55 | PDOC ---
History of Present Illness - General Chief Complaint: Injury Stated Complaint: FALL Time Seen by Provider: 05/05/18 04:28 History Source: Patient Exam Limitations: Clinical Condition - History of Present Illness Initial Comments: 05/05/18 04:54 Patient is an 82 year old female with a PMHx of HTN, Breast cancer, Depression and anxiety, superficial thrombophlebitis (11/2017) placed on Xarelto who presents today s/p fall. Patient is unable to recall the fall and states that she fell and was brought here to the hospital. Patient recently admitted 05/03- 05/04 for s/p fall and unable to bare weight. CT of hip/pelvis and head were done and all negative, however, patient was unable to bare weight and admitted for PT eval and placement. Patient poor historian and unable to provide further information. Patient denies any back pain, hip pain, or flank pain. Otherwise, patient denies fever, chills, nausea, vomiting, abdominal pain, chest pain, palpitations, shortness of breath, headaches, dizziness, acute vision changes, diarrhea, dysuria, hematuria, melena, hematochezia, hematemesis. PMHx: - Breast cancer - HTN - Depression - Anxiety -SuperFicial Thrombophlebitis PSHx: - Appendectomy - Cholecystectomy - Tonsils - Rotator cuff Social Hx: Smoking: Denies Alcohol: Denies Drugs: Denies 05/05/18 05:16 Past History - Past Medical History Allergies/Adverse Reactions: Allergies Allergy/AdvReac Type Severity Reaction Status Date / Time naproxen sodium [From Aleve] Allergy Verified 05/05/18 04:28 Home Medications: Ambulatory Orders Acetaminophen [Mapap] 1,000 mg PO Q8H PRN 11/16/17 Rivaroxaban [Xarelto -] 10 mg PO DAILY #45 tablet 11/18/17 Cholecalciferol (Vitamin D3) [Vitamin D3] 1,000 unit PO DAILY 05/03/18 Multivitamin/Iron/Folic Acid [Daily Vitamin Formula-Iron Tab] 1 each PO DAILY Bupropion HCl [Wellbutrin Xl -] 150 mg PO DAILY tab.sr.24h 05/04/18 Venlafaxine HCl ER [Effexor Xr -] 75 mg PO DAILY cap.er.24h 05/04/18 Cancer: Yes (BREAST) COPD: No HTN: Yes Psychiatric Problems: Yes (DEPRESSION AND ANXIETY) - Surgical History Appendectomy: Yes Cholecystectomy: Yes Orthopedic Surgery: Yes (rotator cuff sx) - Suicide/Smoking/Psychosocial Hx Smoking History: Never smoked Have you smoked in the past 12 months: No Number of Cigarettes Smoked Daily: 0 Cigars Per Day: 0 Hx Alcohol Use: No Drug/Substance Use Hx: No Substance Use Type: None Hx Substance Use Treatment: No Review of Systems - Review of Systems Constitutional: No: Chills, Fever, Weakness HEENTM: No: Nose Congestion, Tinnitus, Throat Pain Respiratory: No: Cough, Orthopnea, Shortness of Breath, SOB with Exertion, SOB at Rest, Wheezing, Productive cough Cardiac (ROS): No: Chest Pain, Edema, Irregular Heart Rate, Lightheadedness, Palpitations, Syncope, Chest Tightness ABD/GI: No: Constipated, Diarrhea, Nausea, Rectal Bleeding, Vomiting, Indigestion, Abdominal cramping : No: Burning, Dysuria, Discharge, Frequency, Flank Pain, Hematuria Integumentary: No: Bruising, Erythema Neurological: Yes: Weakness (Left leg ). No: Headache, Numbness, Seizure, Tremors *Physical Exam - Vital Signs Last Vital Signs Temp Pulse Resp BP Pulse Ox 97.0 F L 70 16 137/53 L 93 L 05/05/18 04:28 05/05/18 04:28 05/05/18 04:28 05/05/18 04:28 05/05/18 04:28 - Physical Exam General Appearance: Yes: Other (Awake, alert, oriented to person, place, and time. In no acute distress ) HEENT: positive: EOMI, COLLIN, Other (Dry mucous membranes, (-) [place] eyes, (-) alcantara's sign, (-) hemotympanum ). negative: Tonsillar Exudate, Tonsillar Erythema Neck: positive: Trachea midline, Supple, Other (Denies any neck pain, Normal range of motion ). negative: Decreased range of motion, Lymphadenopathy (R), Lymphadenopathy (L) Respiratory/Chest: positive: Lungs Clear, Normal Breath Sounds. negative: Respiratory Distress, Labored Respiration, Decreased Breath Sounds, Rales, Rhonchi, Stridor Cardiovascular: positive: Regular Rhythm, Regular Rate, S1, S2. negative: Edema , JVD Gastrointestinal/Abdominal: positive: Other (Soft, nontender, nondistended, normoactive bowel sounds. No rebound tenderness or guarding. No organomegaly ) Musculoskeletal: positive: Normal Inspection, Other (Denies any back pain ). negative: CVA Tenderness, CVA Tenderness (R), CVA Tenderness (L) Extremity: positive: Normal Capillary Refill, Normal Inspection, Other (Left leg weakness. Denies any LE pain or tenderness ) Integumentary: positive: Normal Color, Dry, Warm, Bruising (Right flank area ) Neurologic: positive: generalist II-XII NML intact, Fully Oriented, Alert, Normal Mood/ Affect, Normal Response, Motor Strength 5/5 Moderate Sedation - Procedure Monitoring Vital Signs: Procedure Monitoring Vital Signs Temperature 97.0 F L 05/05/18 04:28 Pulse Rate 70 05/05/18 04:28 Respiratory Rate 16 05/05/18 04:28 Blood Pressure 137/53 L 05/05/18 04:28 O2 Sat by Pulse Oximetry (%) 93 L 05/05/18 04:28 ED Treatment Course - LABORATORY CBC & Chemistry Diagram: 05/05/18 05:40 05/05/18 05:40 Medical Decision Making - Medical Decision Making 05/05/18 05:07 Patient is an 83 year old female who returns here today for s/p multiple falls in the last several months. Differential Diagnosis includes but not limited to UTI, PNA, Metabolic derangements, cardiac arrhythmias. -CBC, CMP, TSH -Cardiac monitoring -U/A and urine culture -EKG and CXR -Head CT 05/05/18 06:38 -Labs unremarkable. -U/A unremarkable -CT head no acute pathology -Will D/C back to [place] *DC/Admit/Observation/Transfer Diagnosis at time of Disposition: Fall Qualifiers: Encounter type: subsequent encounter Qualified Code(s): W19.XXXD - Unspecified fall, subsequent encounter - Discharge Dispostion Disposition: [facility] Condition at time of disposition: Stable Decision to Admit order: No - Referrals Referrals: Reny Luna MD [Primary Care Provider] - - Patient Instructions Printed Discharge Instructions: How to Prevent Falls Additional Instructions: -You were seen here for a fall with several images and blood work done. Your blood work was within normal limits and head CT was negative for any acute pathology. -You will need to stay hydrated and drink plenty of water -You will need to return to your facility for PT/OT. -You will need to be seen by you Primary care physician to re-evaluate and weigh the risks vs benefits of anticoagulation use in the setting of frequent falls. -Please continue your home medications -If you experience symptoms such as severe headaches, acute vision changes, dizziness, loss of consciousness, return to the emergency room immediately. - Post Discharge Activity
--- NOTE | 2018-05-05 05:49 | PDOC ---
Attending Attestation - Resident Resident Name: Yazmin Angelo - ED Attending Attestation I have performed the following: I have examined & evaluated the patient, The case was reviewed & discussed with the resident, I agree w/resident's findings & plan, Exceptions are as noted - HPI HPI: 05/05/18 06:32 82-year-old female history of hypertension, breast CA, depression, superficial thrombophlebitis on Xarelto presents status post fall. The patient is able to recall the circumstances regarding the fall denies any current complaints pain including headache, neck pain, back pain, extremity pain, chest pain, abdominal pain, nausea, vomiting, vision changes, shortness of breath, fever, chills. She was recently admitted for falls, had a PT evaluation and was discharged back to the [facility] 2 days ago. The patient denies any LOC. - Physicial Exam PE: 05/05/18 06:33 GENERAL: The patient is awake, alert, and fully oriented, Nontoxic - in no acute distress. HEAD: Normocephalic, atraumatic. EYES: extraocular movements intact, sclera anicteric, conjunctiva clear. ENT: Normal voice, Moist mucous membranes. NECK: Normal range of motion, supple LUNGS: Breath sounds equal, clear to auscultation bilaterally. No wheezes, no rhonchi, no rales. HEART: Regular rate and rhythm, normal S1 and S2 without murmur, rub or gallop. ABDOMEN: Soft, nontender, normoactive bowel sounds. No guarding, no rebound. . No CVA tenderness EXTREMITIES: Normal range of motion, NEUROLOGICAL: No facial assymetry, Normal speech, PSYCH: Normal mood, normal affect. SKIN: Warm, Dry, normal turgor, - Medical Decision Making 05/05/18 05:46 labs ua, ct, negative will dc back to [place] Heart Score/ECG Review - ECG Impressions Comment:: 05/05/18 06:30 Twelve-lead EKG was performed and reviewed by me. There is normal sinus rhythm with a normal rate. Rate of 69 The axis is normal. The intervals are normal. There is normal R wave progression There are no ST or T wave abnormalities. Impression: Normal twelve-lead EKG
[2018-05-05 05:52] LABS: BASO % 0.2 % (0-2.0); EOS % 1.7 % (0-4.5); HEMATOCRIT 35.8 % (32.4-45.2); HEMOGLOBIN 11.8 GM/dL (10.7-15.3); LYMPH % 14.6 % (8-40); MCH 31.4 pg (25.7-33.7); MEAN CELL VOLUME 95.3 fl (80-96); MONO % 12.4 % (3.8-10.2); NEUT % 71.1 % (42.8-82.8); PLATELET COUNT 180 K/MM3 (134-434); RBC 3.75 M/mm3 (3.60-5.2); RDW 13.1 % (11.6-15.6); WHITE BLOOD COUNT 5.9 K/mm3 (4.0-10.0)
[2018-05-05] MEDS ORDERED: SODIUM CHLORIDE 500 ML IV STA (05:52)
[2018-05-05 06:21] LABS: URINE APPEARANCE CLEAR; URINE BILIRUBIN NEGATIVE (<2.0 mg/dL); URINE COLOR YELLOW; URINE GLUCOSE (UA) NEGATIVE (NEGATIVE); URINE KETONE 1+ (NEGATIVE); URINE LEUK ESTERASE NEGATIVE (NEGATIVE); URINE NITRITE NEGATIVE (NEGATIVE); URINE PROTEIN NEGATIVE (NEGATIVE); URINE UROBILINOGEN 4.0 E.U/dl mg/dL (0.2-1.0)
[2018-05-05 06:31] LABS: ALBUMIN 3.5 g/dl (3.4-5.0); ALK PHOS 71 U/L (45-117); ANION GAP 7 MMOL/L (8-16); BILIRUBIN,TOTAL 0.6 mg/dL (0.2-1); BLOOD UREA NITROGEN 14 mg/dL (7-18); CALCIUM 8.9 mg/dL (8.5-10.1); CHLORIDE 104 mmol/L (98-107); CO2 30 mmol/L (21-32); CREATININE 0.9 mg/dL (0.55-1.3); GLUCOSE,RANDOM 101 mg/dL (74-106); POTASSIUM 3.8 mmol/L (3.5-5.1); SGOT/AST 28 U/L (15-37); SGPT/ALT 21 U/L (13-61); SODIUM 141 mmol/L (136-145)
--- NOTE | 2018-05-05 09:39 | EKG ---
Test Reason : Blood Pressure : / mmHG Vent. Rate : 069 BPM Atrial Rate : 069 BPM P-R Int : 200 ms QRS Dur : 100 ms QT Int : 410 ms P-R-T Axes : 065 067 091 degrees QTc Int : 439 ms NORMAL SINUS RHYTHM NORMAL ECG WHEN COMPARED WITH ECG OF 03-MAY-2018 03:54, NO SIGNIFICANT CHANGE WAS FOUND Confirmed by NEEL SINGH MD ([id number]) on 05/05/2018 9:38:59 AM Referred By: Confirmed By:NEEL SINGH MD
== END 2018-05-05 09:42 ==
LOC: JER 04:23
PROC: 3E0337Z Introduction of Electrolytic and Water Balance Substance into Peripheral Vein, Percutaneous Approach (ICD-10-PCS; principal; 2018-05-05)
DX: Z04.3 Encounter for examination and observation following other accident (principal); R29.6 Repeated falls; W18.39XA Other fall on same level, initial encounter; Y93.89 Activity, other specified; Y92.128 Other place in nursing home as the place of occurrence of the external cause; Y99.8 Other external cause status; I10 Essential (primary) hypertension; F03.90 Unspecified dementia, unspecified severity, without behavioral disturbance, psychotic disturbance, mood disturbance, and anxiety; F32.9 Major depressive disorder, single episode, unspecified; Z85.3 Personal history of malignant neoplasm of breast; Z86.79 Personal history of other diseases of the circulatory system; Z79.01 Long term (current) use of anticoagulants
CPT/HCPCS: 36415; 70450-TC; 71045-TC-FY; 80053; 81003; 82550; 84443; 84484; 85025; 87086; 93005; 93010; 99282-25